=== PATIENT | male | born 1995 ===

== ENCOUNTER 2023-02-19 10:21 | Emergency (ER) | payer OTHER, SELFPAY ==
[2023-02-19 10:38] VITALS: BP 120/76; PULSE 85; RESP 20; TEMP 36.3; O2SAT 96; BMI 30.4
--- NOTE | 2023-02-19 11:12 | PC.NURSE ---
Patient presents for medication refill. Patient denies pain at this time. Patient is well appearing.
--- NOTE | 2023-02-19 11:20 | ED.GENADULT ---
HPI - General Adult General Chief complaint: General Medical Stated complaint: Med refill Time Seen by Provider: 02/19/23 11:18 Source: patient, RN notes reviewed and old records reviewed Mode of arrival: ambulatory History of Present Illness HPI narrative: 28-year-old transgender male to female presenting to the ED requesting medication refills. Patient states she was released [facility] on [facility], was given a 30 day supply of her medications on 01/28 per documentation, however states medications ran out yesterday. Admits is currently in a program, However has not yet established care with a prescriber, herself and program are working on it. Denies any symptoms at present Onset (ago): day(s) Related Data Previous Rx's Medication Instructions Recorded bictegravir 50 mg-emtricitabine 1 tab PO DAILY 2 weeks #14 tabs 02/19/23 200 mg-tenofovir alafenam 25 mg tablet (Biktarvy) escitalopram oxalate 10 mg tablet 10 mg PO DAILY 2 weeks #14 tabs 02/19/23 estradiol 2 mg tablet 2 mg PO DAILY 2 weeks #14 tabs 02/19/23 spironolactone 100 mg tablet 100 mg PO DAILY 2 weeks #14 tabs 02/19/23 Allergies Allergy/AdvReac Type Severity Reaction Status Date / Time No Known Allergies Allergy Verified 02/19/23 10:49 Review of Systems Review of Systems: Constitutional: No Fever, No Chills ENT/Mouth: No Ear Pain, No Nasal Congestion, No sore throat, No Rhinorrhea, No Swallowing Difficulty Cardiovascular: No Chest Pain, No SOB Respiratory: No Cough, No Wheezing Gastrointestinal: No Nausea, No Vomiting, No Diarrhea, No Constipation, No Abdominal pain Genitourinary: No Dysuria, No Flank Pain Musculoskeletal: No joint pain Skin: No Skin Lesions, No rash Neuro: No Weakness Yes all other systems are reviewed and are negative Constitutional: Constitutional: Reports as per [facility] Past Medical History Attestation statement: The following information was validated with the patient. Source: old records reviewed Social History Social History Alcohol intake: never Physical Exam ED Vital Signs: Vital Signs - 24 hr 02/19/23 10:38 Temperature 97.4 F Pulse Rate 85 Respiratory Rate 20 Blood Pressure 120/76 Pulse Oximetry 96 Oxygen Delivery Method Room Air BMI result Body Mass Index 30.4 Const General: cooperative, healthy appearing and no acute distress Orientation/consciousness: patient oriented x3 Limitations: no limitations HENMT Head: Yes normal to inspection and Yes atraumatic Ears: hearing grossly normal bilaterally General nose exam: Normal external nose present Face and sinus: Yes normal facial exam Eyes General: appearance normal, both eyes and all related structures EOM: EOMs intact bilaterally Neck Neck: Yes normal visual inspection and Yes no meningeal signs Resp Effort & Inspection: normal respiratory effort and no respiratory distress Cardio Rate: regular rate Skin Rashes: no rashes Wounds: no wounds Neuro General: patient oriented x3, tone normal and no meningeal signs Gait exam (Neuro): Normal gait present Extrem General: Yes normal to inspection Medical Decision Making Medical Decision Making MDM Narrative: 28-year-old transgender male to female presenting to the ED requesting medication refills. Patient states she was released [facility] on [facility], was given a 30 day supply of her medications on 01/28 per documentation, however states medications ran out yesterday. On exam vital signs stable, NAD, nontoxic appearing, patient presented with medication received from incarceration which shows 30 day supply was given on 01/28. Patient states she ran out of medications yesterday, does not currently have a prescriber. Per states patient did still have a little over a week of medications left. Discussed with patient she needs to establish care with a prescriber/PCP, is currently in a program Will refill medications for with a 2 week supply Results discussed with patient including worrisome signs and symptoms and strict return precautions, and when to return to the emergency department. They verbalized understanding and feel safe for discharge at this time. Differential Diagnosis Differential Diagnoses: The differential diagnosis associated with the presentation includes As above External Record Review External record reviewed: Inpatient record, Office record, Outpatient record, Prior outpatient labs, Prior outpatient radiology, Primary care record and Outside ED record Tests considered The following testing was considered but not selected: As above Discharge Plan Discharge Clinical Impression: Medication refill Patient Disposition: Home, Self-Care Instructions: Medicine Refill (ED) Additional Instructions: We refilled her medication with a 2 week supply based on your last refill date you should still have over a week left of your medications Please establish care with a primary care doctor/provider to obtain refills If you cannot obtain a provider prior to these medications expiring your are always welcome to return to the ED Recargamos cedeño medicamento con un suministro de 2 semanas. seg?n la fecha de cedeño ?ltima recarga, a?n debe tener m?s de hannah semana de chaka medicamentos Establezca atenci?n con un m?dico/proveedor de atenci?n primaria para obtener reabastecimientos Si no puede obtener un proveedor antes de que caduquen estos medicamentos, siempre puede regresar al servicio de urgencias. Prescriptions: New Biktarvy 50-200-25 mg tablet 1 tab PO DAILY 14 Days Qty: 14 0RF spironolactone 100 mg tablet 100 mg PO DAILY 14 Days Qty: 14 0RF estradiol 2 mg tablet 2 mg PO DAILY 14 Days Qty: 14 0RF escitalopram oxalate 10 mg tablet 10 mg PO DAILY 14 Days Qty: 14 0RF Referrals: [facility] [facility] Physician,None [Primary Care Provider] - Print Language: Malay
[2023-02-19 12:22] VITALS: BP 117/67; PULSE 65; RESP 16; O2SAT 97
== END 2023-02-19 12:23 | disposition home or self-care (01) ==
PROVIDERS: Emergency Provider Emergency Medicine
DX: Z76.0 Encounter for issue of repeat prescription (principal)
CPT/HCPCS: 99283; 99284

== ENCOUNTER 2023-02-27 10:27 | Emergency (ER) | payer OTHER, SELFPAY ==
[2023-02-27 10:55] VITALS: BP 116/68; PULSE 79; RESP 16; TEMP 36.2; O2SAT 97; BMI 31.5
--- NOTE | 2023-02-27 11:05 | ED.GENADULT ---
HPI - General Adult General Chief complaint: General Medical Stated complaint: ? medication Time Seen by Provider: 02/27/23 11:05 Source: patient and old records reviewed Mode of arrival: ambulatory Limitations: no limitations History of Present Illness HPI narrative: 28-year-old transgender male to female with history of HIV and depression is presenting to the ED requesting medication refills. She was seen here in the ER for the same 2 weeks ago and given a 2 week supply of her meds including biktarvy, celexa, spironolactone and estradiol. She has not been able to get in with a PCP yet. She states she has been on these medications for years. Recently got out of [facility] in January. complaint: med refill Relieving factors: none Exacerbating factors: none Associated symptoms: denies other symptoms Treatments prior to arrival: none Related Data Previous Rx's Medication Instructions Recorded bictegravir 50 mg-emtricitabine 1 tab PO DAILY 2 weeks #14 tabs 02/19/23 200 mg-tenofovir alafenam 25 mg tablet (Biktarvy) escitalopram oxalate 10 mg tablet 10 mg PO DAILY 2 weeks #14 tabs 02/19/23 estradiol 2 mg tablet 2 mg PO DAILY 2 weeks #14 tabs 02/19/23 spironolactone 100 mg tablet 100 mg PO DAILY 2 weeks #14 tabs 02/19/23 bictegravir 50 mg-emtricitabine 1 tab PO DAILY #30 tabs 02/27/23 200 mg-tenofovir alafenam 25 mg tablet (Biktarvy) escitalopram oxalate 10 mg tablet 10 mg PO DAILY #30 tabs 02/27/23 estradiol 2 mg tablet 2 mg PO DAILY #30 tabs 02/27/23 spironolactone 100 mg tablet 100 mg PO DAILY #30 tabs 02/27/23 Allergies Allergy/AdvReac Type Severity Reaction Status Date / Time No Known Allergies Allergy Verified 02/19/23 10:49 Review of Systems Review of Systems: Yes all other systems are reviewed and are negative [facility] Social History Social History Alcohol intake: never Advance Directives: No Advance Directives Information Provided: No Physical Exam ED Vital Signs: Vital Signs - 24 hr 02/27/23 10:55 Temperature 97.2 F Pulse Rate 79 Respiratory Rate 16 Blood Pressure 116/68 Pulse Oximetry 97 Oxygen Delivery Method Room Air BMI result Body Mass Index 31.5 Appearance: Alert. Oriented X3. No acute distress. HEENT: normal inspection Respiratory: No respiratory distress. Skin: Skin warm and dry. Normal skin color. Normal skin turgor. No rashes. Extremities: normal insepction x4 Neuro: Oriented X 3. grossly normal\ Medical Decision Making Medical Decision Making MDM Narrative: 28 yo transgender male to female, hx HIV and depression who recently [facility] presenting for medication refills. meds reviewed. will give 1 month supply. PCP and endocrine numbers provided. stable for d/c home. Differential Diagnosis Differential Diagnoses: The differential diagnosis associated with the presentation includes medication refills, medication withdrawals, medication abuse Prescription Management I considered prescription management with: Other (HAART, anti-depressants, hormonal therapy) Chronic Conditions Patient?s care impacted by: Other (HIV) Critical Care Time Critical Care Time Critical Care Time: No Discharge Plan Discharge Clinical Impression: Medication refill Patient Disposition: Home, Self-Care Instructions: Medicine Refill (ED) Additional Instructions: follow up with a primary care doctor for future refills Prescriptions: New Biktarvy 50-200-25 mg tablet 1 tab PO DAILY Qty: 30 0RF spironolactone 100 mg tablet 100 mg PO DAILY Qty: 30 0RF estradiol 2 mg tablet 2 mg PO DAILY Qty: 30 0RF escitalopram oxalate 10 mg tablet 10 mg PO DAILY Qty: 30 0RF No Action Biktarvy 50-200-25 mg tablet 1 tab PO DAILY 14 Days Qty: 14 0RF spironolactone 100 mg tablet 100 mg PO DAILY 14 Days Qty: 14 0RF estradiol 2 mg tablet 2 mg PO DAILY 14 Days Qty: 14 0RF escitalopram oxalate 10 mg tablet 10 mg PO DAILY 14 Days Qty: 14 0RF Interventions: ED Discharge Assessment Last Done: 02/27/23 11:15 Discharge Date/Time: 02/27/23 11:15
== END 2023-02-27 11:15 | disposition home or self-care (01) ==
PROVIDERS: Emergency Provider Emergency Medicine
DX: Z76.0 Encounter for issue of repeat prescription (principal); F32.A Depression, unspecified; B20 Human immunodeficiency virus [HIV] disease
CPT/HCPCS: 99282; 99283